=== PATIENT | male | born 1985 | race Caucasian/White ===

== ENCOUNTER 2024-07-17 18:41 | Emergency (ER) | payer OTHER, SELFPAY ==
[2024-07-17 19:03] VITALS: BP 119/70; PULSE 57; RESP 18; TEMP 37.1; O2SAT 100; BMI 30.5
--- NOTE | 2024-07-17 19:03 | ED.SKABFB ---
HPI - Skin/Abscess/Foreign Bdy General Chief complaint: Skin/Abscess/Foreign Body Stated complaint: RT armpit abscess Time Seen by Provider: 07/17/24 19:55 History of Present Illness ED Provider: Antonio Peace MD HPI narrative: [age] male with history of lower abdominal skin abscess in the region of the skin shaving now he developed right axillary abscess for about 4-5 days worsening painful. No fever or constitutional symptoms. Related Data Previous Rx's ?Medication ?Instructions ?Recorded sulfamethoxazole 800 1 tab PO BID 7 days #14 tabs 07/17/24 mg-trimethoprim 160 mg tablet (Bactrim DS) Allergies Allergy/AdvReac Type Severity Reaction Status Date / Time No Known Allergies Allergy Verified 07/17/24 19:06 PMF Social History Social History Advance Directives: No Advance Directives Information Provided: No Do you have a plan to hurt others: No Plan Physical Exam Vital Signs: Vital Signs: Last Vital Signs Temp 98.4 F 07/17/24 22:41 Pulse 56 07/17/24 22:41 Resp 16 07/17/24 22:41 BP 128/74 07/17/24 22:41 Pulse Ox 97 07/17/24 22:41 O2 Del Method Room Air 07/17/24 22:41 BMI result Body Mass Index 30.5 Const: Other: EXAM: Gen: Alert, awake, well appearing, well hydrated. Skin: R axilla with about 2 x 4 cm fluctuant erythematous obvious abscess of the medial axilla confirmed with them hypoechoic pocket on ultrasound Vital signs: See flowsheet Course Course Course Narrative: This is an RME: Additional HPI, ROS, PE not included below will be deferred to primary provider. RME assessment and note performed by: Elizabeth Gay PA-C This is a [id number], with no known medical problems, who presents to the emergency department with complaints of Right axillary pain and abscess x 4 days. Hx of abscesses in the past on his abdomen. area of fluctuance with tract noted Plan: further er eval needed. Medications Administered Discontinued Medications Generic Name Dose Route Start Last Admin Trade Name Freq PRN Reason Stop Dose Admin Cephalexin HCl 500 mg 07/17/24 20:19 07/17/24 20:43 Cephalexin 500 Mg Capsule PO 07/17/24 20:20 500 mg ONCE ONE Administration Ibuprofen 600 mg 07/17/24 20:19 07/17/24 20:43 Ibuprofen 600 Mg Tablet PO 07/17/24 20:20 600 mg ONCE ONE Administration Lidocaine HCl 1 appl 07/17/24 20:19 07/17/24 20:43 Lidocaine 4 % Cream Kit TOPICAL 07/17/24 20:20 1 appl ONCE ONE Administration Protocol Lidocaine/Epinephrine 20 ml 07/17/24 20:19 07/17/24 20:48 Lidocaine Hcl 2%/Epi 1:100,000 20 Ml Vial INFILTRATI 07/17/24 20:20 Not Given ONCE ONE Lidocaine/Epinephrine 20 ml 07/17/24 20:46 07/17/24 21:54 Lidocaine Hcl 1%/Epi 1:100,000 20 Ml Vial INFILTRATI 07/17/24 20:47 20 ml ONCE ONE Administration Trimethoprim/Sulfamethoxazole 1 tab 07/17/24 20:19 07/17/24 20:43 Sulfamethox/Trimeth 800/160 Tablet PO 07/17/24 20:20 1 tab ONCE ONE Administration Procedures Abscess I/D Site: other (axilla) Side (if applicable): right Sedation/analgesia: none Local Anesthetic: lidocaine 1% and with epi Amount of anesthesia used (mL): 10 Technique: incised with blade and ultrasound guided Amount of fluid expressed (mL): 5 Sent for culture/gram staining?: No Irrigation: Yes Packing used?: iodoform Complications: pain Discharge Plan Discharge Clinical Impression: Abscess of skin or subcutaneous tissue Patient Disposition: Home, Self-Care Instructions: Abscess (ED), Abscess Incision and Drainage (DC) Additional Instructions: DISCHARGE DIAGNOSES: Abscess of the axilla HISTORY OF PRESENTATION: ?4-5 days of swelling and redness of the axilla on the right side EMERGENCY DEPARTMENT COURSE,TESTS, TREATMENTS: While in the ED today you had an ultrasound showing a pocket to drain. He had an incision and drainage with affective drainage of the pus. We started antibiotics. DISCHARGE MEDICATIONS: ?Bactrim prescription sent to your local pharmacy FOLLOW-UP: ?Call your primary or general physician soon as possible to discuss your symptoms, your ED visit and to discuss follow up plans We also packed the wound this may fall out on its own or can be removed we suggest visiting your local urgent care or coming to an ED if you are unable to in 2-3 days for packing removal INSTRUCTIONS ?& RETURN PRECAUTIONS: If any symptoms change first call your primary physician, if it is after-hours your primary doctors office should have a provider construction management instructor you can speak with. If the symptoms are severe or very concerning to you then call 911 or return to the ED. Keep the area clean dry and covered. The packing strip may fall out on its own this is fine no need to worry about that. After the packing is removed in 2-3 days or falls out on its own you can gently cleanse the area with soap and water daily and keep it covered for about a week. The wound will begin to heal on its own Antonio Peace MD Emergency Physician [facility] Prescriptions: New sulfamethoxazole-trimethoprim [Bactrim DS] 800-160 mg tablet 1 tab PO BID 7 Days Qty: 14 0RF Interventions: ED Discharge Assessment Last Done: 07/17/24 22:41 Discharge Date/Time: 07/17/24 22:41 Print Language: [place]
[2024-07-17] MEDS: Ibuprofen 600 MG TABLET PO (20:43)
[2024-07-17] MEDS: Sulfamethox/Trimeth 800/160 TABLET 1 TAB PO (20:43)
[2024-07-17] MEDS: cephALEXin 500 MG CAPSULE PO (20:43)
[2024-07-17] MEDS: Lidocaine 4 % Cream KIT 1 APPL TOPICAL (20:43)
[2024-07-17 21:02] VITALS: BP 121/79; PULSE 55; RESP 16; TEMP 37.1; O2SAT 98
[2024-07-17] MEDS: Lidocaine HCl 1%/Epi 1:100,000 20 ML VIAL INFILTRATI (21:54)
--- NOTE | 2024-07-17 21:58 | PC.NURSE ---
abscessed drain by provider. p tolerated well
[2024-07-17 22:35] VITALS: BP 128/74; PULSE 56; RESP 16; TEMP 36.9; O2SAT 97
[2024-07-17 22:41] VITALS: BP 128/74; PULSE 56; RESP 16; TEMP 36.9; O2SAT 97
== END 2024-07-17 22:41 | disposition home or self-care (01) ==
PROVIDERS: Emergency Provider Emergency Medicine
DX: L02.411 Cutaneous abscess of right axilla (principal)
CPT/HCPCS: 10060; 99284; J2004